=== PATIENT | male | born 1970 | race Caucasian/White ===

== ENCOUNTER 2017-05-20 17:54 | Emergency (ER) | payer MEDICAID ==
--- NOTE | ~2017-05-20 | ER ---
PATIENT'S NAME: TRAVIS OROPEZA [facility] AGE: 46 Y [address] ROOM: [place] [address] LOCATION: [facility] ADMIT DATE: 05/20/2017 ER/Outpatient Report DISCHARGE DATE: 05/20/2017 FAMILY PHYSICIAN: Physician, Unknown ATTENDING PHYSICIAN: Cecilio Vasquez Admission date and time documented in the medical record. I saw the patient at 1805 hours. CHIEF COMPLAINT: Left groin, testicular pain. HISTORY OF PRESENT ILLNESS: The patient is a 46-year-old male, who presented to the emergency room with left groin, left testicular pain started around 1400 hours this afternoon. He has been constipated with some abdominal pain. Did an enema, had some results later this afternoon. Also has dysuria. No fever, chills, or sweats. No coughs, colds, or flus. No headache, eyes, ears, nose, throat, neck, or spine pain. No lightheadedness, dizziness, syncope, or near syncope. No fall or trauma. No chest pain, shortness of breath. Left groin abdominal type pain. No CVA pain. No nausea, vomiting, or diarrhea. No joint or muscle swelling, redness, or pain. No skin eruptions or rash. Does have chronic back pain, hypertension. No endocrine problems, neuro changes, psych issues. HOME MEDICATIONS: None. ALLERGIES: NONE. SOCIAL HISTORY: The patient smokes half a pack of cigarettes per day. Occasional intake of alcohol. SIGNIFICANT PAST MEDICAL HISTORY: Hypertension, headaches, asthma, chronic low back pain, tobacco abuse. OPERATIONS: Back surgery x2, nerve pain stimulator placement and removal. REVIEW OF SYSTEMS: All systems reviewed by me are negative with the exception of those discussed in the history of present illness. PHYSICAL EXAMINATION: PATIENT'S NAME: TRAVIS OROPEZA [facility] AGE: 46 Y [address] ROOM: [place] [address] LOCATION: [facility] ADMIT DATE: 05/20/2017 ER/Outpatient Report DISCHARGE DATE: 05/20/2017 FAMILY PHYSICIAN: Physician, Unknown ATTENDING PHYSICIAN: Cecilio Vasquez VITAL SIGNS: Temperature 98.6, blood pressure 171 over 106. HEAD: Normocephalic. EYES, EARS, NOSE, THROAT: Clear. Mucous membranes moist. NECK: Negative. SPINE: Negative. LUNGS: Clear. Good air flow. No rales, rhonchi, or wheezes. HEART: Regular. Pulses are palpable. No chest wall or ribcage pain to palpation. No deformity. ABDOMEN: Flat, soft. Active bowel tones. No organomegaly or abnormal mass palpable. No CVA tenderness. No groin herniation. : Testicles, the patient has tenderness in the left testicle. Feels like there is enlarged epididymis. The testicle itself does not feel enlarged. Right testis is okay. No inguinal herniation on digital exam bilaterally. EXTREMITIES: Intact. NEUROVASCULAR: Intact. SKIN: Clear. No skin eruptions or rash. LABORATORY DATA AND X-RAYS: Three abdominal x-rays show no perforation, obstruction, acute lung infiltrate. Does have increased stool pattern consistent with constipation. White count was 16,000, 87 segs, 8 lymphs, 5 monos, hemoglobin is 14.7, hematocrit 43.3, platelet count is 236,000. Pro-time is 10.8 with an INR 1.03. CMS was normal except for a slightly low anion gap of 9.9. Amylase and lipase were normal. CPK was normal at 213. [id number] cardiac enzymes were normal. CRP was elevated at 4.02. ProBNP was 91. Procalcitonin was normal, less than 0.05. Lactate was normal at 1.2. Urine showed 20-50 whites, 50-100 reds, rare epithelial cells, few bacteria, 1+ mucus per high- powered field, negative nitrites on dipstick. Urine culture pending. Did do an ultrasound of left testicle that showed epididymitis. Testicle was normal. There was no torsion. Did have a hydrocele. See radiology report. CT scan of the abdomen and pelvis with renal stone protocol showed no evidence of renal stones, hydronephrosis, or any evidence of pyelonephritis. CT scan was read by Radiology, see dictated transcribed report. EMERGENCY DEPARTMENT COURSE: I did give the patient IV Dilaudid, fentanyl for pain. Gave him Rocephin 1 g IV in the emergency room. IMPRESSION: 1. Epididymitis, left side. Severe pain. No evidence of orchitis, herniation. 2. Urinary tract infection. Culture pending. No evidence of pyelonephritis or ureteral stone. 3. Hypertension. 4. Tobacco abuse. 5. Constipation. PATIENT'S NAME: TRAVIS OROPEZA [facility] AGE: 46 Y [address] ROOM: [place] [address] LOCATION: ED ADMIT DATE: 05/20/2017 ER/Outpatient Report DISCHARGE DATE: 05/20/2017 FAMILY PHYSICIAN: Physician, Unknown ATTENDING PHYSICIAN: Cecilio Vasquez PLAN: The patient dismissed home. Observation. Activity as tolerated. Fluids and diet as tolerated. Good hydration. Empty bladder often. Warm to hot sitz baths intermittently as needed. Doxycycline 100 mg b.i.d. for 10 days. [place] 10/325 as needed for pain. Follow up with personal physician in 7 to 10 days or sooner if needed. I did discuss my findings with the patient. MD EMILY BANERJEE/yolandel /[id number] d: 05/20/17 2315 t: 05/21/17 1818, OUTPATIENT REPORT
[2017-05-20 18:43] LABS: BASOPHIL # 0.1 K/uL (0.0-0.2); BASOPHIL % 0.3 %; EOSINOPHIL % 0.3 %; HEMATOCRIT 43.3 % (37.0-53.0); HEMOGLOBIN 14.7 g/dL (12.0-17.0); IMMATURE GRANULOCYTE # 0.1 K/uL (0.0-0.3); IMMATURE GRANULOCYTE % 0.4 %; LYMPHOCYTE # 1.2 K/uL (0.8-4.0); LYMPHOCYTE % 7.6 %; MCH 30.6 pg (27.0-34.0); MCHC 33.9 gm/dL (32.0-36.5); MCV 90.2 fl (83.0-98.0); MONOCYTE # 0.8 K/uL (0.0-1.0); MONOCYTE % 4.8 %; MPV 9.4 fl (9.4-12.4); NEUTROPHIL # (ANC) 13.8 K/uL (1.4-9.0); NEUTROPHIL % 86.6 %; NRBC % 0 /100WBC (0-0.00); PLATELET COUNT 236 K/uL (150-450); RDW-CV 13.4 % (11.9-14.6)
[2017-05-20 18:52] LABS: INR - (THERAPEUTIC) 1.03 (0.92-1.07); PROTIME 10.8 SECONDS (9.8-11.4)
[2017-05-20 18:57] LABS: BILIRUBIN URINE NEGATIVE (NEGATIVE); BLOOD URINE 250 /UL (NEGATIVE); COLOR URINE YELLOW (YELLOW); GLUCOSE URINE NEGATIVE (NEGATIVE); KETONE URINE NEGATIVE (NEGATIVE); LEUKOCYTES URINE 500 /UL (NEGATIVE); NITRITE URINE NEGATIVE (NEGATIVE); PROTEIN URINE 30 mg/dL (NEGATIVE); UROBILINOGEN URINE 1 mg/dL (NORMAL)
[2017-05-20 19:04] LABS: TURBIDITY URINE 1+ (CLEAR)
[2017-05-20 19:05] LABS: ALBUMIN 3.5 gm/dL (3.5-5.0); ALK PHOS 83 IU/L (33-138); ALT 20 IU/L (12-78); ANION GAP 9.9 (10.0-19.0); AST 18 IU/L (10-40); BLOOD UREA NITROGEN 14 mg/dL (6-24); CALCIUM 8.5 mg/dL (8.5-10.5); CHLORIDE 104 mMol/L (96-110); CO2 26 mMol/L (22-32); CPK 213 IU/L (35-332); CREATININE 0.9 mg/dL (0.6-1.3); POTASSIUM 3.9 mMol/L (3.7-5.1); SODIUM 136 mMol/L (135-145); TOTAL BILIRUBIN 0.4 mg/dL (0.0-1.5)
[2017-05-20 19:12] LABS: RBC URINE 50-100 #/HPF (NEGATIVE); WBC URINE 20-50 #/HPF (NEGATIVE)
[2017-05-20 19:13] LABS: BACTERIA URINE FEW (NEGATIVE); EPITHELIAL URINE RARE #/HPF (NEGATIVE); MUCUS URINE 1+ (NEGATIVE)
== END 2017-05-20 21:01 | disposition disaster alternative care site (69) ==
LOC: GMED 17:54
PROVIDERS: Emergency Medicine
DX: N45.1 Epididymitis (principal); N39.0 Urinary tract infection, site not specified; I10 Essential (primary) hypertension; K59.00 Constipation, unspecified; F17.210 Nicotine dependence, cigarettes, uncomplicated; Z79.899 Other long term (current) drug therapy
CPT/HCPCS: J0696; J1170